=== PATIENT | female | born 1955 | race Caucasian/White ===

== ENCOUNTER 2018-02-05 13:53 | Emergency (ER) | payer BC ==
[~2018-02-05 13:53] MED LIST: AMLO-96 PO; AMLO2.5T74 PO; ASPI-1471 PO; AZIT-1 PO; CALC1TAB32 PO; DOC100 PO; FA/M1TAB27 PO; FLU IM; FLU45SYR17 IM; FLU45SYR25 IM ONLY; IBU800 PO; LOR5 PO; METF-1 PO; METF-411 PO; OMEG-11 PO; PER PO; SERT-173 PO; SERT-179 PO; SPI25 PO; SPIR1TAB26 PO; SPIR25TA76 PO; SPIR25TA78 PO; SPIR25TA80 PO; VALS-25 PO; VALS1TAB79 PO; VALS40TA6 PO; [UNRECOGNIZED DRUG - CODE] PO
--- NOTE | 2018-02-05 14:04 | ER Report ---
History and Physical Time Seen By MD: 14:04 HPI/ROS CHIEF COMPLAINT: shoulder dislocation HISTORY OF PRESENT ILLNESS: This is a 62 year old female. She was sent over by Dr. Bolden's office today for shoulder dislocation. Happened on Monday, fell off tractor, pain since then. In the office, Dr. Bolden tried to do a reduction with intra-articular numbing, but unsuccessful, so asked if we could try and do it under sedation, and then if not successful, he could take her to the OR. She has normal sensation in the hand and arm. Pain with any motion of the shoulder, but no other pain. No allergies. No shortness of breath. Allergies: Coded Allergies: No Known Drug Allergies (Unverified , 04/24/14) Home Meds Active Scripts Amlodipine Besylate (AMLODIPINE BESYLATE) 5 Mg Tablet, 1 TAB PO QDAY, #90 TAB 4 Refills Prov:MARGOT NG MD 04/25/17 Spironolactone (ALDACTONE) 25 Mg Tablet, 1 TAB PO QDAY, #90 TAB 4 Refills Prov:MARGOT NG MD 04/25/17 Valsartan/Hydrochlorothiazide (DIOVAN HCT 320-25 MG TABLET) 1 Each Tablet, 1 TAB PO QDAY, #90 TAB 4 Refills Prov:MARGOT NG MD 04/25/17 Sertraline Hcl (ZOLOFT) 100 Mg Tablet, 1 TAB PO QDAY, #90 TAB 4 Refills Prov:MARGOT NG MD 04/25/17 Metformin Hcl (METFORMIN HCL) 500 Mg Tablet, 1 TAB PO BID, #180 TAB 4 Refills Prov:MARGOT NG MD 04/25/17 Reported Medications Calcium Carb & Cit/Vitamin D3 (CALCIUM + D3 ER TABLET) 1 Each Tablet.er, 1 TAB PO QDAY 04/22/14 Reviewed Nurses Notes: Yes Hx Smoking: No Smoking Status: Never Smoker Exposure to Second Hand Smoke?: Yes Hx Substance Use Disorder: No Hx Alcohol Use: Yes (2 MIXED DRINKS A DAY) Constitutional Vital Sign - Last 24 Hours 02/05/18 02/05/18 02/05/18 02/05/18 14:00 14:03 14:05 14:06 Temp 98.5 Pulse ??? 85 80 Resp 18 B/P (MAP) 139/88 (105) 139/88 Pulse Ox 88 92 O2 Delivery Room Air 02/05/18 02/05/18 02/05/18 02/05/18 14:10 14:15 14:20 14:25 Pulse 80 84 79 77 Resp 20 8 16 Pulse Ox 86 84 83 92 02/05/18 02/05/18 02/05/18 02/05/18 14:30 14:32 14:35 14:40 Pulse 71 78 85 Resp 14 17 20 B/P (MAP) 129/85 (100) 117/75 (89) 105/83 (90) Pulse Ox 92 91 91 93 O2 Delivery Nasal Cannula O2 Flow Rate 3.0 02/05/18 02/05/18 02/05/18 02/05/18 14:45 14:50 14:50 14:55 Pulse 81 78 72 Resp 18 20 21 B/P (MAP) 112/86 (95) 116/75 (89) 115/75 (88) Pulse Ox 91 90 91 O2 Delivery Nasal Cannula O2 Flow Rate 2.0 02/05/18 02/05/18 02/05/18 02/05/18 15:00 15:05 15:10 15:15 Pulse 68 68 77 70 Resp 14 14 33 23 B/P (MAP) 109/72 (84) 114/73 (87) 121/110 (114) 126/81 (96) Pulse Ox 86 92 91 95 02/05/18 02/05/18 02/05/18 02/05/18 15:20 15:25 15:30 15:35 Pulse 67 67 75 71 Resp 21 18 23 24 B/P (MAP) 123/77 (92) 120/75 (90) 134/87 (103) 119/83 (95) Pulse Ox 92 93 91 89 02/05/1818 15:40 15:45 Pulse 71 74 Resp 60 8 B/P (MAP) 114/87 (96) 125/77 (93) Pulse Ox 92 93 Physical Exam General: Alert, no acute distress. ENT: normal class I airway, no signs of problems. Musculoskeletal: Pain and deformity of the left shoulder. Neuro: Normal sensation distally. Normal reed polisher and hand strength. Skin: No breakdown. bandage over the injection site posterior shoulder. Medical Decision Making EKG/Imaging Imaging SHOULDER MIN 2 VIEWS LEFT Indication: Shoulder pain. Recent dislocation. Comparison: Unavailable Findings: 2 views of the left shoulder are submitted. On this two-view study, no acute fracture deformity is seen. The glenohumeral joint and the acromioclavicular joint appear normally aligned. There has been prior plate and screw fixation of the shaft of the left humerus which is incompletely evaluated. IMPRESSION: 1. No acute fracture or dislocation of the left shoulder on this two-view study. Report Dictated By: Chuy Guerin at 02/05/2018 4:04 PM ED Course/Re-evaluation Clinical Indication for ER IV: Hydration, IV Access ED Course Procedure: Procedural sedation. A pre-sedation evaluation was completed on the patient. Patient is an appropriate candidate for procedural sedation. The risks of the sedation were discussed with the patient. A time out was completed. The patient was reevaluated immediately prior to initiation of sedation. The patient was sedated with propofol. The patient was monitored with continuous pulse oximetry and alarm security or surveillance monitor. There were no complications and no significant hypoxemia. I remained at the bedside for the sedation. The total time I spent in the procedural sedation was 15 minutes. Post sedation evaluation: Patient was alert and cooperative, hemodynamically stable with appropriate respiratory status, temperature and pain control without ongoing nausea and vomiting. Procedure: Shoulder dislocation reduction: The shoulder was reduced in the usual fashion without complications. Post reduction the patient's neurovascular exam is normal. Post reduction x-ray demonstrates reduction of the joint to the anatomic position. The procedure was performed by myself. Decision to Disposition Date: Feb 05, 2018 Decision to Disposition Time: 15:14 Depart Departure Latest Vital Signs Vital Signs Date Time Temp Pulse Resp B/P (MAP) Pulse Ox O2 Delivery O2 Flow Rate FiO2 02/05/18 15:45 74 8 125/77 (93) 93 02/05/18 14:50 Nasal Cannula 2.0 02/05/18 14:06 98.5 Impression: Primary Impression: Shoulder dislocation Condition: Improved Disposition: HOME OR SELF-CARE Referrals: MARGOT NG MD (PCP) Patient Instructions: Shoulder Dislocation (ED) Additional Instructions: Wear your sling until you see Dr. Kline later this week. Problem Qualifiers Primary Impression: Shoulder dislocation Encounter type: initial encounter Laterality: left Qualified Codes: S43.005A - Unspecified dislocation of left shoulder joint, initial encounter ERWIN ALCAZAR MD Feb 05, 2018 14:04
[2018-02-05] MEDS ORDERED: NS(*) 0.9% 1000 ML BAG 1,000 ML IV ONE (14:15)
[2018-02-05] MEDS ORDERED: PROPOFOL EMUL 10MG/ML 20 ML VL IVP ONE (14:15)
[2018-02-05 15:45] VITALS: BP 125/77
--- NOTE | 2018-02-05 16:10 | RADIOLOGY IMAGING REPORT ---
FAC[place] [facility] [place]IENT NAME: Sarah Shah : 1955 MR: [id number] V: [id number] EXAM DATE: ORDERING PHYSICIAN: ERWIN ALCAZAR TECHNOLOGIST: Location[place] [facility] [place] Patient: Sarah Shah : 1955 Visit/Account:[id number] Date of Sevice: 02/05/2018 SHOULDER MIN 2 VIEWS LEFT Indication: Shoulder pain. Recent dislocation. Comparison: Unavailable Findings: 2 views of the left shoulder are submitted. On this two-view study, no acute fracture deformity is seen. The glenohumeral joint and the acromioc lavicular joint appear normally aligned. There has been prior plate and screw fixation of the shaft of the left humerus which is incompletely evaluated. IMPRESSION: 1. No acute fracture or dislocation of the left shoulder on this two-view study. Report Dictated By: Chuy Guerin at 02/05/2018 4:04 PM Report E-Signed By: Chuy Guerin at 02/05/2018 4:05 PM WSN:[email or web address]
== END 2018-02-05 15:58 | disposition home or self-care (01) ==
LOC: ER 14:07
DX: S43.005A Unspecified dislocation of left shoulder joint, initial encounter (principal); W17.89XA Other fall from one level to another, initial encounter
CPT/HCPCS: 23650; 73030; 96361; 96374; 99152; 99285; J2704; J7030

== ENCOUNTER 2018-02-09 10:55 | Emergency (ER) | payer BC ==
[2018-02-09] MEDS ORDERED: HYDR-389 PO (11:02)
--- NOTE | 2018-02-09 11:05 | ER Report ---
History and Physical Time Seen By MD: 11:05 Hx. of Stated Complaint: pt reports a shooting pain under R breast that started this morning HPI/ROS Chief Complaint: "right sided chest pain" HPI: 62-year-old female presents to the Emergency Department with chest pain on the right side that radiates into her right jaw. On Monday02/03/18 she fell from her tractor and dislocated her left shoulder. The shoulder was reduced in the Emergency Department on the following Monday. She denies having pain since the arm was reduced but woke up this morning and had severe right sided chest pain. The pain is sharp and not reproduced by movement or palpation. The pain is made worse when she inhales. She took a tablet of hydrocodone which decreased the pain minimally. In the Emergency Room today she is requiring a nasal cannula to maintain her oxygen saturations above 90%. She denies having a history of decreased oxygen saturation or requiring oxygen. ROS: Constitutional. Denies recent illness, malaise, chills, fever. HEENT. Denies headache. No difficulty hearing, no ear pain. No sinus congestion. No sore throat. Cardiovascular. Denies chest pain, palpitations, or diaphoresis. Respiratory. Denies cough, shortness of breath, or wheezing, reports pain with inhalation. Gastrointestinal System. Denies nausea, vomiting, hematochezia, or black stools. Genitourinary. Denies lower back pain, hematuria, or changes in urination. Musculoskeletal. Reports right sided chest pain. Denies pain with moving extremities. Allergies: Coded Allergies: No Known Drug Allergies (Unverified , 02/09/18) Home Meds Active Scripts Azithromycin 250 Mg Tab (AZITHROMYCIN 250 MG TAB) 250 Mg Tablet, 1 TAB PO QDAY, #6 TAB Take 2 tabs today and then 1 tab a day until gone. Prov:CARLOS ASKEW 02/09/18 Amlodipine Besylate (AMLODIPINE BESYLATE) 5 Mg Tablet, 1 TAB PO QDAY, #90 TAB 4 Refills Prov:MARGOT NG MD 04/25/17 Spironolactone (ALDACTONE) 25 Mg Tablet, 1 TAB PO QDAY, #90 TAB 4 Refills Prov:MARGOT NG MD 04/25/17 Valsartan/Hydrochlorothiazide (DIOVAN HCT 320-25 MG TABLET) 1 Each Tablet, 1 TAB PO QDAY, #90 TAB 4 Refills Prov:MARGOT NG MD 04/25/17 Sertraline Hcl (ZOLOFT) 100 Mg Tablet, 1 TAB PO QDAY, #90 TAB 4 Refills Prov:MARGOT NG MD 04/25/17 Metformin Hcl (METFORMIN HCL) 500 Mg Tablet, 1 TAB PO BID, #180 TAB 4 Refills Prov:MARGOT NG MD 04/25/17 Reported Medications Acetaminophen/Hydrocodone (HYDROCODON-ACETAMINOPH 7.5-325) 1 Each Ea, 1 EACH PO PRN, EA 02/09/18 Discontinued Reported Medications Calcium Carb & Cit/Vitamin D3 (CALCIUM + D3 ER TABLET) 1 Each Tablet.er, 1 TAB PO QDAY 04/22/14 Past Medical/Surgical History Td vaccination 10/01 hypertension, right hand fracture pins removed 20 years ago, type II diabetes, left shoulder dislocation 02/05/18 Reviewed Nurses Notes: Yes Hx Smoking: No Smoking Status: Never Smoker Exposure to Second Hand Smoke?: Yes Hx Substance Use Disorder: No Hx Alcohol Use: Yes (2 MIXED DRINKS A DAY) Constitutional Vital Sign - Last 24 Hours 02/09/18 02/09/18 02/09/18 02/09/18 11:00 11:02 11:10 11:15 Temp 97.9 Pulse 68 66 Resp 16 B/P (MAP) 138/89 (105) 138/89 129/82 (98) Pulse Ox 86 96 O2 Delivery Room Air 02/09/18 02/09/18 02/09/18 02/09/18 11:25 11:30 11:35 11:45 Pulse 74 69 B/P (MAP) 115/82 (93) 93/58 (70) Pulse Ox 95 92 02/09/18 02/09/18 02/09/18 02/09/18 11:50 12:00 12:15 12:20 Pulse 64 61 B/P (MAP) 112/71 (85) 121/79 (93) Pulse Ox 93 92 02/09/18 02/09/18 02/09/18 02/09/18 12:25 12:30 12:40 12:45 Pulse 67 63 B/P (MAP) 103/67 (79) 111/76 (88) Pulse Ox 92 93 02/09/18 02/09/1802/09/18 12:55 13:10 13:25 Pulse 73 70 73 Pulse Ox 92 91 93 Intake and Output 02/09/18 02/09/18 02/10/18 14:59 22:59 06:59 Intake Total 700 ml Balance 700 ml Physical Exam Physical Examination Constitutional: Generally well nourished, well-developed female, interactive, in no acute distress. Extremities warm to touch. Skin: [place] and well perfused BL. No evidence of generalized rash. Generally, warm and dry to touch. Head: Normocephalic and atraumatic. Eyes: Non-injected. No exudates. PERRLA. Corneas grossly intact. Extra ocular movements intact. ENMT: Ears- symmetrical auricles with smooth skin; auricles aligned with the outer canthus of eye. TMs clear. Nose - symmetric, straight, and uniform in color. No nasal flaring. Mouth - mucosa pink and moist. Throat no hoarseness , uvula midline. Neck: Neck supple, erect, trachea midline, no masses. Thyroid no enlargement or nodules, non-tender. Lymph nodes- cervical chain, pre-and post-auricular, occipital, mandibular, and submental lymph nodes non-tender and non-palpable. BL parotid glands non-tender and non-palpable. Cardiovascular: 2+ radial and pedal pulses BL equal. PMI - left midclavicular at the 5th ICS. Aortic, pulmonic, tricuspid, and mitral areas - clear S1/S2; no murmur, no S3, or S4. Respiratory: Respiratory Excursion BL equal and symmetrical; no presence of lag; quiet, rhythmic and effortless. No retractions. BL clear and equal. Musculoskeletal: Muscles symmetric BL, active motion of all extremities. Neurologic: Alert. Language clear. Normal and coordinated gait. Sensation grossly intact, deep tendon reflects 2+ bilaterally. Differential Diagnoses Considered: DC, PE, Pneumothorax, rib fracture, musculoskeletal pain Medical Decision Making Data Points Result Diagram: 02/09/18 1120 02/09/18 1120 Laboratory Hematology Test 02/09/18 11:20 Red Blood Count 4.46 M/uL (4.17-5.56) Mean Corpuscular Volume 93.2 fL (80.0-96.0) Mean Corpuscular Hemoglobin 32.0 pg (26.0-33.0) Mean Corpuscular Hemoglobin Concent 34.3 g/dL (32.0-36.0) Red Cell Distribution Width 13.1 % (11.5-14.5) Mean Platelet Volume 7.5 fL (7.2-11.1) Neutrophils (%) (Auto) 87.2 % (39.4-72.5) Lymphocytes (%) (Auto) 4.9 % (17.6-49.6) Monocytes (%) (Auto) 6.2 % (4.1-12.4) Eosinophils (%) (Auto) 0.6 % (0.4-6.7) Basophils (%) (Auto) 1.1 % (0.3-1.4) Nucleated RBC Relative Count (auto) 0.2 /100WBC Neutrophils # (Auto) 9.6 K/uL (2.0-7.4) Lymphocytes # (Auto) 0.5 K/uL (1.3-3.6) Monocytes # (Auto) 0.7 K/uL (0.3-1.0) Eosinophils # (Auto) 0.1 K/uL (0.0-0.5) Basophils # (Auto) 0.1 K/uL (0.0-0.1) Nucleated RBC Absolute Count (auto) 0.02 K/uL Sodium Level 138 mmol/L (137-145) Potassium Level 4.0 mmol/L (3.5-5.0) Chloride Level 97 mmol/L (98-107) Carbon Dioxide Level 30 mmol/L (22-31) Blood Urea Nitrogen 23 mg/dl (7-18) Creatinine 0.90 mg/dl (0.52-1.04) Glomerular Filtration Rate Calc > 60.0 Random Glucose 134 mg/dl (75-110) Calcium Level 9.4 mg/dl (8.4-10.2) Total Bilirubin 0.9 mg/dl (0.2-1.3) Aspartate Amino Transf (AST/SGOT) 35 U/L (0-35) Alanine Aminotransferase (ALT/SGPT) 35 U/L (0-56) Alkaline Phosphatase 56 U/L (0-126) Troponin I < 0.012 ng/ml Total Protein 7.4 g/dl (6.3-8.2) Albumin 4.4 g/dl (3.5-5.0) Chemistry Test 02/09/18 11:20 White Blood Count 11.1 k/uL (4.5-11.0) Red Blood Count 4.46 M/uL (4.17-5.56) Hemoglobin 14.3 g/dL (12.0-16.0) Hematocrit 41.6 % (34.0-47.0) Mean Corpuscular Volume 93.2 fL (80.0-96.0) Mean Corpuscular Hemoglobin 32.0 pg (26.0-33.0) Mean Corpuscular Hemoglobin Concent 34.3 g/dL (32.0-36.0) Red Cell Distribution Width 13.1 % (11.5-14.5) Platelet Count 188 K/uL (150-450) Mean Platelet Volume 7.5 fL (7.2-11.1) Neutrophils (%) (Auto) 87.2 % (39.4-72.5) Lymphocytes (%) (Auto) 4.9 % (17.6-49.6) Monocytes (%) (Auto) 6.2 % (4.1-12.4) Eosinophils (%) (Auto) 0.6 % (0.4-6.7) Basophils (%) (Auto) 1.1 % (0.3-1.4) Nucleated RBC Relative Count (auto) 0.2 /100WBC Neutrophils # (Auto) 9.6 K/uL (2.0-7.4) Lymphocytes # (Auto) 0.5 K/uL (1.3-3.6) Monocytes # (Auto) 0.7 K/uL (0.3-1.0) Eosinophils # (Auto) 0.1 K/uL (0.0-0.5) Basophils # (Auto) 0.1 K/uL (0.0-0.1) Nucleated RBC Absolute Count (auto) 0.02 K/uL Glomerular Filtration Rate Calc > 60.0 Calcium Level 9.4 mg/dl (8.4-10.2) Total Bilirubin 0.9 mg/dl (0.2-1.3) Aspartate Amino Transf (AST/SGOT) 35 U/L (0-35) Alanine Aminotransferase (ALT/SGPT) 35 U/L (0-56) Alkaline Phosphatase 56 U/L (0-126) Troponin I < 0.012 ng/ml Total Protein 7.4 g/dl (6.3-8.2) Albumin 4.4 g/dl (3.5-5.0) EKG/Imaging EKG Interpretation Normal Sinus Rhythm, rate of 68 bpm Monitor Interpretation: Normal Sinus Rhythm Imaging 2 VIEWS CHEST INDICATION: Chest pain x1 day. COMPARISON: None available FINDINGS: Heart size within normal limits. Mild nonspecific consolidation within the right lung base which may be related to atelectasis however cannot exclude additional underlying airspace disease. Remaining lungs are clear. There is no pneumothorax or pleural effusion. IMPRESSION: 1. Mild nonspecific consolidation of the right lung base which may be related to atelectasis however cannot exclude additional underlying airspace disease. Report Dictated By: Edison Rolle MD at 02/09/2018 12:17 PM Report E-Signed By: Edison Rolle MD at 02/09/2018 12:18 PM ED Course/Re-evaluation ED Course 62-year-old female presented to the Emergency Department after waking up with severe pain under her left breast. The pain was minimally relieved with one tablet of hydrocodone. She reports having her left arm reduced on Monday in the Emergency Department a day after she fell from her tractor. On admission into the Emergency Department she was placed on a nasal canula to maintain her oxygen saturation above 90%. History and physical examination was obtained. The differential diagnoses were considered and shared with the patient. We decided to obtain a CBC, CMP, troponin, chest x-ray, EKG, and consider pursuing a CT of the chest. Elevated WBC with elevated neutrophils and chest x-ray indicate community acquired pneumonia. With a walking pulse oxygen test her oxygen saturations dropped to 80% in room air. The patient lives approximately 22 miles from the hospital. Along with antibiotic treatment she will be sent home on 2 L of oxygen via nasal canula and encouraged to continue to the oxygen therapy until her follow up appointment with her primary care provider. The patient states understanding and agreement. She has been encouraged to return to the emergency department if she experiences shortness of breath or difficulty breathing as well as, any worsening of her condition. Decision to Disposition Date: Feb 09, 2018 Decision to Disposition Time: 12:59 Depart Departure Latest Vital Signs Vital Signs Date Time Temp Pulse Resp B/P (MAP) Pulse Ox O2 Delivery O2 Flow Rate FiO2 02/09/18 13:25 73 93 02/09/18 12:45 111/76 (88) 02/09/18 11:02 97.9 16 Room Air Impression: Primary Impression: Community acquired pneumonia Condition: Improved Disposition: HOME OR SELF-CARE Referrals: MARGOT NG MD (PCP) New Scripts Azithromycin 250 Mg Tab (AZITHROMYCIN 250 MG TAB) 250 Mg Tablet 1 TAB PO QDAY, #6 TAB Take 2 tabs today and then 1 tab a day until gone. Prov: CARLOS ASKEW 02/09/18 Departure Forms: ER Transition Record, Home Oxygen, Nebulizer RX, Durable Medical Equipment-Oxygen: Oxygen Concentrator, Portable Oxygen Gas Reason for Use/Diagnosis: pnuemonia, hypoxia Start Date of the Order: Feb 09, 2018 Dosage or Concentration (if applicable) - LPM: 2 Route of Administration (if applicable): Nasal Cannula Frequency of Use: Continuous Duration Home O2 Required: 5 Duration Units: Until Next F/U Appt. Room Air Oxygen Saturation: 83 ER Prescribing Physician's Name: Carlos Askew NPI Numbers for Local ER MDs: Howie [id number] Medications Reconciliation, Patient Portal Information Patient Instructions: Community Acquired Pneumonia (ED) Additional Instructions: Return to the Emergency Department if you experience shortness of breath or difficulty breathing. Use 2 liters of oxygen until you follow up with your primary care provider. Follow up with your primary care provider in three days or sooner if your condition does not improve. Take antibiotics as directed. Ensure you take the entire course. Take ibuprofen for pain as needed. Rest and hydrate. Try to take deep breaths every hour. Return to the emergency department if your condition worsens. Problem Qualifiers Primary Impression: Community acquired pneumonia Laterality: right Lung location: lower lobe of lung Qualified Codes: J18.1 - Lobar pneumonia, unspecified organism CARLOS ASKEW Feb 09, 2018 11:05
--- NOTE | 2018-02-09 11:38 | EKG ---
FACILITY: [facility] - [place] PATIENT NAME: ROMEO EDOUARD : [id number] MR: [id number] V: [id number] EXAM DATE: ORDERING PHYSICIAN: MARIANO ASKEW TECHNOLOGIST: Test Reason : CHEST PAIN Blood Pressure : / mmHG Vent. Rate : 067 BPM Atrial Rate : 067 BPM P-R Int : 160 ms QRS Dur : 086 ms QT Int : 424 ms P-R-T Axes : 050 034 056 degrees QTc Int : 448 ms Normal sinus rhythm Normal ECG No previous ECGs available Referred By: MARIANO ASKEW Confirmed By:
[2018-02-09 11:43] LABS: PLATELET COUNT, AUTOMATED 188 K/uL (150-450)
[2018-02-09] MEDS ORDERED: NS(*) 0.9% 1000 ML BAG 1,000 ML IV ONE (11:55)
--- NOTE | 2018-02-09 12:22 | RADIOLOGY IMAGING REPORT ---
FACILITY: [facility] - [place] PATIENT NAME: Sarah Shah : 1955 MR: [id number] V: [id number] EXAM DATE: ORDERING PHYSICIAN: MARIANO ASKEW TECHNOLOGIST: [place] [facility] [place] Patient: Sarah Shah : 1955 Visit/Account:[id number] Date of Sevice: 02/09/2018 2 VIEWS CHEST INDICATION: Chest pain x1 day. COMPARISON: None available FINDINGS: Heart size within normal limits. Mild nonspecific consolidation within the right lung base which may be related to atelectasis however cannot exclude additional underlying airspace disease. Remaining lungs are clear. There is no pneumothorax or pleural effusion. IMPRESSION: 1. Mild nonspecific consolidation of the right lung base which may be related to atelectasis however cannot exclude additional underlying airspace disease. Report Dictated By: Edison Rolle MD at 02/09/2018 12:17 PM Report E-Signed By: Edison Rolle MD at 02/09/2018 12:18 PM WSN:[email or web address]
[2018-02-09 12:45] VITALS: BP 111/76
[2018-02-09] MEDS ORDERED: AZIT-18 PO (13:00)
== END 2018-02-09 13:40 | disposition home or self-care (01) ==
LOC: ER 11:01
DX: J18.9 Pneumonia, unspecified organism (principal)
CPT/HCPCS: 71046; 84484; 85025; 93005; 96360; 96361; 99284; J7030; 82040; 82247; 82310; 82374; 82435; 82565; 82947; 84075; 84132; 84155; 84295; 84450; 84460; 84520

== ENCOUNTER → 2018-12-06 | Outpatient (CLI) | payer BC ==
[~2018-12-06] MED LIST changes: +AMLO-125 PO; -AMLO-96 PO; -AMLO2.5T74 PO; +AMLO2.5T78 PO; +AZIT-18 PO; +FLU60SYR36 IM; +HYDR-389 PO; +LOSA-54 PO; -METF-411 PO; +METF-450 PO; +VARI50KI IM; +glucometer
--- NOTE | 2018-12-07 14:08 | RADIOLOGY IMAGING REPORT ---
FACILITY: [facility] PATIENT NAME: ROMEO EDOUARD : [id number] MR: [id number] V: [id number] EXAM DATE: [id number] ORDERING PHYSICIAN: FILIPPO PLEITEZ TECHNOLOGIST: Santa Sears PROCEDURE: BILATERAL DIGITAL SCREENING MAMMOGRAM WITH CAD ASSISTED INTERPRETATION & 3D TOMOSYNTHESIS REASON FOR STUDY: Screening FAMILY HISTORY OF BREAST CANCER: None BREAST PROCEDURES/TREATMENTS: None COMPARISON: 08/05/16, 04/02/13, 03/30/12 VIEWS OBTAINED: Bilateral 2D & 3D full field CC & MLO BREAST DENSITY: There are scattered areas of fibroglandular density throughout the breasts MAMMOGRAM FINDINGS: The parenchymal pattern has remained stable allowing for difference in mammographic technique & patient positioning. IMPRESSION: BIRADS 1: Negative. DIAGNOSTIC CATEGORY 1--NEGATIVE. RECOMMENDATIONS: ROUTINE MAMMOGRAM AND CLINICAL EVALUATION. Dictated by: Mariam Hernández M.D. on 12/06/2018 at 16:29 Transcribed by: SHENG on 12/07/2018 at 13:16 Approved by: Mariam Hernández M.D. on 12/07/2018 at 14:05 [facility]
== END ==
LOC: MAMO 00:11
PROVIDERS: ATTEND Nurse Practitioner Family
DX: Z12.31 Encounter for screening mammogram for malignant neoplasm of breast (principal)
CPT/HCPCS: 77063; 77067